=== PATIENT | female | born 1965 | race American Indian/Alaskan Native ===

== ENCOUNTER 2018-01-21 09:10 | Emergency (ER) | payer OTHER ==
[2018-01-21 09:47] VITALS: BP 133/93
--- NOTE | 2018-01-21 10:23 | XRay Report ---
RIGHT KNEE, 3 views: History: Pain, swelling Normal bone mineralization. Mild to moderate osteoarthritic changes are identified in the lateral compartment. Mild tibial spine spurring. No evidence for fracture, bone lesion or osteochondral defect. The soft tissues are unremarkable. IMPRESSION: Mild osteoarthritis.
[2018-01-21] MEDS ORDERED: MOTRIN PO ONE (12:10)
[2018-01-21] MEDS ORDERED: DELTASONE PO ONE (12:10)
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
== END 2018-01-21 12:45 | disposition home or self-care (01) ==
LOC: ED 09:10
DX: M17.12 Unilateral primary osteoarthritis, left knee (principal); I10 Essential (primary) hypertension; Z90.49 Acquired absence of other specified parts of digestive tract
CPT/HCPCS: 73562; 93005; 93010; 99283; J7512